=== PATIENT | female | born 1970 ===

== ENCOUNTER 2018-09-05 09:13 | Emergency (ER) | payer SELFPAY ==
[2018-09-05 09:44] VITALS: TEMP 98.3
[2018-09-05 10:13] LABS: BASO # 0.1 K/uL (0.0-0.2); BASO % 0.6 % (0.0-2.0); EOS # 0.1 K/uL (0.0-0.7); EOS % 0.8 % (0.0-4.0); HEMOGLOBIN 13.5 g/dL (11.0-16.0); LYMPH # 2.9 K/uL (1.0-4.3); LYMPH % 30.4 % (20.0-40.0); MEAN CELL VOLUME 91.7 fL (81.0-99.0); MEAN CORPUSCULAR HEMOGLOBIN 31.6 pg (27.0-31.0); MEAN CORPUSCULAR HGB CONC 34.4 g/dL (33.0-37.0); MEAN PLATELET VOLUME 7.6 fL (7.2-11.7); MONO # 0.5 K/uL (0.0-0.8); MONO % 5.6 % (0.0-10.0); NEUT # 5.9 K/uL (1.8-7.0); NEUT % 62.6 % (50.0-75.0); NRBC % 0.1 % (0.0-2.0); RBC 4.27 Mil/uL (3.80-5.20); RED CELL DISTRIBUTION WIDTH 12.3 % (11.5-14.5); WHITE BLOOD COUNT 9.4 K/uL (4.8-10.8)
--- NOTE | 2018-09-05 10:21 | C.PDOC ---
History Of Present Illness 47 y/o female, w/PMhx of HTN, BIBA for evaluation of headache, dizziness, nausea, and 1 episode of vomiting. 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 Patient notes that she felt upset immediately and she experienced headache and dizziness. Afterwards, she went to eat breakfast, she had coffee and cheese sandwich. She started feeling nauseous and she made herself vomit x 1 by sticking her finger in her mouth.Denies having fever, chills, CP, SOB, and abdominal pain. <Elisabeth Leonard - Last Filed: 09/05/18 13:35> History Per: Patient History/Exam Limitations: no limitations Onset/Duration Of Symptoms: Hrs Current Symptoms Are (Timing): Still Present Severity: Moderate <Elisabeth Leonard - Last Filed: 09/05/18 13:35> <Hossein Stahl - Last Filed: 09/05/18 18:28> Time Seen by Provider: 09/05/18 09:42 Chief Complaint (Nursing): Headache Past Medical History Reviewed: Historical Data, Nursing Documentation, Vital Signs Vital Signs: Last Vital Signs Temp 98.3 F 09/05/18 09:43 Pulse 60 09/05/18 09:43 Resp 20 09/05/18 09:43 BP 175/96 H 09/05/18 10:19 Pulse Ox 100 09/05/18 09:43 - Medical History PMH: Anxiety, HTN, Hypercholesterolemia Other Surgeries: Hx of surgeries Family History: States: No Known Family Hx - Social History Hx Alcohol Use: Yes Hx Substance Use: No - Immunization History Hx Tetanus Toxoid Vaccination: No Hx Influenza Vaccination: No Hx Pneumococcal Vaccination: No <Elisabeth Leonard - Last Filed: 09/05/18 13:35> Vital Signs: Last Vital Signs Temp 98.3 F 09/05/18 09:43 Pulse 67 09/05/18 12:24 Resp 17 09/05/18 12:24 BP 161/82 H 09/05/18 12:24 Pulse Ox 100 09/05/18 13:37 <Hossein Stahl - Last Filed: 09/05/18 18:28> Review Of Systems Except As Marked, All Systems Reviewed And Found Negative. Constitutional: Negative for: Fever, Chills Cardiovascular: Negative for: Chest Pain Respiratory: Negative for: Shortness of Breath Gastrointestinal: Positive for: Nausea, Vomiting. Negative for: Abdominal Pain Neurological: Positive for: Headache, Dizziness <Elisabeth Leonard Last Filed: 09/05/18 13:35> Physical Exam - Physical Exam Appears: Non-toxic, Agitated, Other (uncomfortable yelling ) Skin: Normal Color, Warm, Dry Head: Atraumatic, Normacephalic Eye(s): bilateral: Normal Inspection, PERRL, EOMI Nose: Normal Oral Mucosa: Moist Neck: Supple Chest: Symmetrical Cardiovascular: Rhythm Regular Respiratory: Normal Breath Sounds, No Rales, No Rhonchi, No Wheezing Gastrointestinal/Abdominal: Soft, No Tenderness Extremity: Bilateral: Normal Color And Temperature, Normal ROM Neurological/Psych: Oriented x3, Normal Speech, Normal Motor, Normal Sensation Gait: Unable To Assess <Elisabeth Leonard Filed: 09/05/18 13:35> ED Course And Treatment - Laboratory Results Result Diagrams: 09/05/18 10:10 09/05/18 10:31 Lab Interpretation: No Acute Changes ECG: Interpreted By Me, Viewed By Nj ECG Rhythm: Sinus Rhythm ECG Interpretation: No Acute Changes Rate From EC O2 Sat by Pulse Oximetry: 100 (RA) Pulse Ox Interpretation: Normal - CT Scan/US CT-Head Other Rad Studies (CT/US): Read By Radiologist, Radiology Report Reviewed CT/US Interpretation: Date of service: 09/05/2018. PROCEDURE: CT HEAD WITHOUT CONTRAST. HISTORY: Headache. COMPARISON: No prior study available comparison. TECHNIQUE: Axial computed tomography images were obtained through the head/brain without intravenous contrast. Radiation dose: Total exam DLP = 984.61 mGy-cm. This CT exam was performed using one or more of the following dose reduction techniques: Automated exposure control, adjustment of the mA and/or kV according to patient size, and/or use of iterative reconstruction technique. FINDINGS: HEMORRHAGE: Diffuse subarachnoid hemorrhage that o ccupies/fills the basilar cisterns extending into the lateral and sylvian fissures. There extension superiorly along the interhemispheric fissure anterior more so than posterior. Subarachnoid hemorrhage is also seen layering along the tentorium. Findings are consistent with ruptured aneurysm.. There is a more discrete clot seen in the posterior superior aspect of the anterior interhemispheric fissure. BRAIN: Diffuse cerebral edema with early mild hydrocephalus there are chronic appearing periventricular white matter ischemic changes with right basal ganglia lacunar type infarct likely chronic. Age indeterminate presumed ischemic changes seen in the left posterior frontoparietal subcortical and deep white matter. Rule out early changes related to vasospasm. Note made of small extra-axial calcification left frontal region; rule out incidental small meningioma. VENTRICLES: Mild early hydrocephalus as above. CALVARIUM: Unremarkable. PARANASAL SINUSES: Unremarkable as visualized. No significant inflammatory changes. MASTOID AIR CELLS: Unremarkable as visualized. No inflammatory changes. OTHER FINDINGS: None. IMPRESSION: Diffuse subarachnoid hemorrhage with of diffuse cerebral edema and mild early hydrocephalus. Findings are consistent with ruptured aneurysm.. There is localized discrete clot seen in the posterior superior aspect of the anterior margin to hemispheric fissure.. Chronic periventricular white matter ischemic changes with lacunar type infarct likely chronic right basal ganglia. Age indeterminate presumed ischemic changes seen in the left posterior frontoparietal subcortical and deep white matter. Rule out early changes related to vasospasm. Note these findings were discussed with Dr. Stahl at approximately 10:55 a.m. with written down and read back verification.. Questionable small incidental calcified meningioma left frontal region. <Elisabeth Leonard - Last Filed: 09/05/18 13:35> - Laboratory Results Result Diagrams: 09/05/18 10:10 09/05/18 10:31 <Hossein Stahl - Last Filed: 09/05/18 18:28> Medical Decision Making Medical Decision Making: Impression: Headache, Dizziness, Vomiting Plan: * Labs * UA * CT-Head * Norvasc PO * Reglan IV Progress: Labs reviewed shows hyperglycemia otherwise no acute findings. Radiologist called with acute Diffuse subarachnoid hemorrhage with of diffuse cerebral edema and mild early hydrocephalus. Findings are consistent with ruptured aneurysm. ED attending is aware and examined patient and put in additional orders for labs and medications. 11:17 discussed case with , neurosurgeon. Dr. Patten advised that patient be transferred to [facility]. Dr Stahl contacted [place] for transfer. I explained results of CT and need for transfer to patient. Patient gave written consent to transfer and understands the rationale and risks of transfer. All documents completed gathered and sent. <Elisabeth Leonard - Last Filed: 09/05/18 13:35> Medical Decision Making: pt seen with pa. green since am. ct shows large subarachnoid. in er, neuro intact, awake alert. case discussed with dr killian. requests transfer to [facility]. accepted by neurosurgery alexi wells. transfer ER to er. accpeted dr belle, er attending. offered neuroprotective intabtion. at this time, neurosx requests no prophaxic intubation. airway patent in er. <Hossein Stahl - Last Filed: 09/05/18 18:28> Disposition - Disposition Disposition Time: 12:20 - POA Present On Arrival: None <Elisabeth Leonard - Last Filed: 09/05/18 13:35> <Hossein Stahl - Last Filed: 09/05/18 18:28> - Disposition Disposition: Trans to Other Acute Care Hosp Condition: STABLE Forms: [facility] ([place]) - Clinical Impression Clinical Impression: Subarachnoid hemorrhage - PA / MANAGER WOMEN / Resident Statement MD/DO has reviewed & agrees with the documentation as recorded. - Scribe Statement The provider has reviewed the documentation as recorded by the Scribe Camila Rodriguez Provider Attestation All medical record entries made by the Scribe were at my direction and person ally dictated by me. I have reviewed the chart and agree that the record accurately reflects my personal performance of the history, physical exam, medical decision making, and the department course for this patient. I have also personally directed, reviewed, and agree with the discharge instructions and disposition. <Elisabeth Leonard - Last Filed: 09/05/18 13:35>
[2018-09-05 10:47] LABS: BLOOD UREA NITROGEN 11 mg/dL (7-17); GFR NON-AFRICAN AMERICAN > 60
[2018-09-05 10:48] LABS: ALB/GLOB RATIO 1.2 (1.0-2.1); ALBUMIN 3.9 g/dL (3.5-5.0); ALT/SGPT 13 U/L (9-52); AST/SGOT 24 U/L (14-36)
[2018-09-05] MEDS ORDERED: niCARdipine IV 25 MG in Sodium Chloride 0.9% 240 ML IV SCH (11:00)
--- NOTE | 2018-09-05 11:08 | CT ---
Date of service: 09/05/2018 PROCEDURE: CT HEAD WITHOUT CONTRAST. HISTORY: Headache COMPARISON: No prior study available comparison. TECHNIQUE: Axial computed tomography images were obtained through the head/brain without intravenous contrast. Radiation dose: Total exam DLP = 984.61 mGy-cm. This CT exam was performed using one or more of the following dose reduction techniques: Automated exposure control, adjustment of the mA and/or kV according to patient size, and/or use of iterative reconstruction technique. FINDINGS: HEMORRHAGE: Diffuse subarachnoid hemorrhage that occupies/fills the basilar cisterns extending into the lateral and sylvian fissures. There extension superiorly along the interhemispheric fissure anterior more so than posterior. Subarachnoid hemorrhage is also seen layering along the tentorium. Findings are consistent with ruptured aneurysm.. There is a more discrete clot seen in the posterior superior aspect of the anterior interhemispheric fissure. BRAIN: Diffuse cerebral edema with early mild hydrocephalus there are chronic appearing periventricular white matter ischemic changes with right basal ganglia lacunar type infarct likely chronic. Age indeterminate presumed ischemic changes seen in the left posterior frontoparietal subcortical and deep white matter. Rule out early changes related to vasospasm Note made of small extra-axial calcification left frontal region; rule out incidental small meningioma. VENTRICLES: Mild early hydrocephalus as above. CALVARIUM: Unremarkable. PARANASAL SINUSES: Unremarkable as visualized. No significant inflammatory changes. MASTOID AIR CELLS: Unremarkable as visualized. No inflammatory changes. OTHER FINDINGS: None. IMPRESSION: Diffuse subarachnoid hemorrhage with of diffuse cerebral edema and mild early hydrocephalus. Findings are consistent with ruptured aneurysm.. There is localized discrete clot seen in the posterior superior aspect of the anterior margin to hemispheric fissure.. Chronic periventricular white matter ischemic changes with lacunar type infarct likely chronic right basal ganglia. Age indeterminate presumed ischemic changes seen in the left posterior frontoparietal subcortical and deep white matter. Rule out early changes related to vasospasm Note these findings were discussed with Dr. Stahl at approximately 10:55 a.m. with written down and read back verification.. Questionable small incidental calcified meningioma left frontal region.
[2018-09-05] MEDS ORDERED: Morphine 4 MG/ML VIAL ONE ×2 (11:14→11:22)
[2018-09-05 11:24] LABS: INR 1.1; PROTHROMBIN TIME 11.6 SECONDS (9.7-12.2)
[2018-09-05] MEDS ORDERED: levETIRAcetam 500 MG in Sodium Chloride 0.9% 100 ML IVPB STA (11:45)
[2018-09-05 11:57] VITALS: O2SAT 100
[2018-09-05] MEDS ORDERED: levETIRAcetam 500 MG in Sodium Chloride 0.9% 100 ML IVPB ONE (12:00)
[2018-09-05 12:17] LABS: CK-MB 0.35 ng/mL (0.0-3.38)
[2018-09-05 12:26] LABS: TROPONIN I 0.031 ng/mL (0.00-0.120)
--- NOTE | 2018-09-05 13:31 | RAD ---
Date of service: 09/05/2018 HISTORY: [facility] COMPARISON: No prior. FINDINGS: LUNGS: No active pulmonary disease. PLEURA: No significant pleural effusion identified, no pneumothorax apparent. CARDIOVASCULAR: No aortic atherosclerotic calcification present. Normal cardiac size. No pulmonary vascular congestion. OSSEOUS STRUCTURES: No significant abnormalities. VISUALIZED UPPER ABDOMEN: Normal. OTHER FINDINGS: None. IMPRESSION: No active disease.
[2018-09-06 00:06] VITALS: BP 161/82; PULSE 67; RESP 17
== END 2018-09-05 12:42 | disposition short-term general hospital (02) ==
LOC: C.ER 09:13
DX: I60.9 Nontraumatic subarachnoid hemorrhage, unspecified (principal)
CPT/HCPCS: 70450; 71045; 80053; 80061; 82948; 83036; 84484; 85025; 85610; 85730; 96374; 96375; 99285; J1953; J2270; J2765